=== PATIENT | female | born 1975 | race Two or more races ===

== ENCOUNTER 2024-09-06 14:14 | Emergency (ER) | payer MEDICAID, OTHER ==
[~2024-09-06] VITALS: Ht 162.6 cm; Wt 81.3 kg
[2024-09-06 14:53] LABS: Urine Bacteria None Seen /hpf (None Seen)
[2024-09-06] MEDS: SODIUM CHLORIDE 0.9% 1,000 ML IV ONE (15:00)
[2024-09-06 15:11] LABS: Urine Blood Negative /uL (Negative); Urine Clarity Clear (Clear); Urine Color Light-Yellow (Yellow); Urine Mucus FEW (None Seen); Urine Protein, UAD TRACE (Negative); Urine Specific Gravity 1.017 (1.001-1.035); Urine Squamous Epithelial Cell FEW /hpf (<5); Urine Urobilinogen Normal (Negative); Urine WBC 9 /HPF (0-5); Urine pH 6.5 (5.0-9.0)
--- NOTE | 2024-09-06 15:20 | ED.PDOC ---
General HPI Comments 49 y.o female with PMHx of Medullary sponge kidney (MSK), irregular heart beat, UTI's, DM, kidney stones, presents to the ED for a chief complaint of right sided flank pain that started 2 days ago. Patient reports pain is constant, radiates to her right lower pelvic/abdomen region and has no modifying factors. Patient denies any nausea, vomiting, diarrhea, fever, chills, hematuria. Hx of multiple lithotripsies with admissions to the hospital due to MSK and kidney stone production but mentions last admission was years ago. Chief Complaint: Flank Pain Time Seen by MD: 14:37 Primary Care Provider: daylin Carnes notes: Nurses Notes, Medications, Allergies Allergies: Coded Allergies: Aspirin (Verified Allergy, Unknown, 09/06/24) Home Meds Active Scripts Acetaminophen (Tylenol Extra Strength) 500 Mg Tab, 1000 MG PO Q6HP PRN, #30 TAB prn pain or fever Prov:RE PARHAM MD 09/06/24 Cephalexin Monohydrate (Cephalexin) 500 Mg Cap, 1 CAP PO QID for 10 Days, #40 CAP Prov:RE PARHAM MD 09/06/24 Information Source: Patient Mode of Arrival: Ambulatory Severity: Moderate Timing: Days (2) Duration: Since onset Onset: Spontaneous Symptoms: None History of: UTI, Kidney stone associated signs and symptoms: Flank Pain Past Medical History PAST MEDICAL HISTORY: HTN, Kidney Stones, UTI'S Past Medical History (Other): Medullary sponge kidney (MSK), irregular HR Surgical History (Other): multiple lithotripsies SAMPLE SEWER History: No Pertinent SAMPLE SEWER History Family History Family History: Reviewed,noncontributory to illness, No family hx of Cancer, No family hx of DM, No family hx of Heart alyssa, No family hx of HTN, No family hx ofKidney alyssa, No family hx of Liver alyssa, No family hx of Lung alyssa, No family hx of Stroke Social History Smoker: Non-Smoker Alcohol: Denies ETOH Use Drugs: Denies Drug Use Lives In: Home Constitutional: denies: chills, diaphoresis, fatigue, fever, malaise, sweats, weakness, others EENTM: denies: blurred vision, double vision, ear bleeding, ear discharge, ear drainage, ear pain, ear ringing, eye pain, eye redness, hearing loss, mouth pain, mouth swelling, nasal discharge, nose bleeding, nose congestion, nose pain, photophobia, tearing, throat pain, throat swelling, voice changes, others Respiratory: denies: cough, hemoptysis, orthopnea, SOB at rest, shortness of breath, SOB with excertion, stridor, wheezing, others Cardiovascular: denies: chest pain, dizzy spells, diaphoresis, Dyspnea on exertion, edema, irregular heart beat, left arm pain, lightheadedness, palpitations, PND, syncope, others Gastrointestinal: denies: abdomen distended, abdominal pain, blood streaked bowels, constipated, diarrhea, dysphagia, difficulty swallowing, hematemesis, melena, nausea, poor appetite, poor fluid intake, rectal bleeding, rectal pain, vomiting, others Genitourinary: reports: flank pain (right ); denies: abnormal vagina bleeding, burning, dyspareunia, dysuria, frequency, hematuria, incontinence, pain, , vagina discharge, urgency, others Neurological: denies: dizziness, fainting, headache, left sided numbness, left sided weakness, numbness, paresthesia, pre-existing deficit, right sided numbness, right sided weakness, seizure, speech problems, tingling, tremors, weakness, others Musculoskeletal: denies: back pain, gout, joint pain, joint swelling, muscle pain, muscle stiffness, neck pain, others Integumetry: denies: bruises, change in color, change in hair/nails, dryness, laceration, lesions, lumps, rash, wounds, others Allergic/Immunocompromised: denies: Difficulty Healing, Frequent Infections, Hives, Itching, others Hematologic/Lymphatic: denies: anemia, blood clots, easy bleeding, easy bruising, swollen glands, others Endocrine: denies: excessive hunger, excessive sweating, excessive thirst, excessive urination, flushing, intolerance to cold, intolerance to heat, unexplained weight gain, unexplained weight loss, others Psychiatric: denies: anxiety, bipolar disorder, depression, hopeless, panic disorder, schizophrenia, sleepless, suicidal, others All Other Systems: Reviewed and Negative Physical Exam General Appearance: No Apparent Distress, Obese HEENT: Other (Moist mucous membranes) Neck: Full Range of Motion, Normal Inspection Respiratory: Lungs Clear, No Accessory Muscle Use, No Respiratory Distress, Normal Breath Sounds Cardiovascular: No Edema, No JVD, Regular Rate/Rhythm Breast Exam: Deferred Gastrointestinal: Soft, Tenderness (Mild right lower flank tenderness to palpation. No abdominal tenderness to palpation. No rebound or guarding.) Genitalia: Deferred Pelvic: Deferred Rectal: Deferred Extremities: Normal inspection, Normal range of motion, Non-tender, No pedal edema Neurologic: Alert (Oriented x4), Normal Affect, Normal Mood, Other (Ambulatory without difficulty. No gross focal deficit.) Cerebellar Function: NOT DONE Reflexes: NOT DONE Skin: Dry, Normal Color, Warm Lymphatic: NOT DONE Was a procedure done? Was a procedure done?: No Differential Diagnosis Kidney stone (Female): Musculoskeletal pain, Pyelonephritis, Renal failure, Strain, Urolithiasis Kidney stone (Male): N/A Penile/Scrotal: N/A Urinary Problem (Male): N/A Urinary Problem (Female): Appendicitis, Ectopic , Intrauterine , PID, Pyelonephritis, Urolithiasis, UTI X-Ray, Labs, Meds, VS Vital Signs Date Time Temp Pulse Resp B/P (MAP) Pulse Ox O2 Delivery O2 Flow Rate FiO2 09/06/24 19:32 95 18 98 Room Air* 0 21 09/06/24 18:06 70 18 98 Room Air 09/06/24 18:06 97.1 70 18 95/46 (62) 98 97.1 09/06/24 14:32 98.5 104 17 162/90 (114) 95 Lab Test 09/06/24 15:17 09/06/24 14:52 Range/Units White Blood Count 13.3 H 4.4-10.8 10^3/uL Red Blood Count 5.46 H 4.0-5.20 10^6/uL Hemoglobin 16.2 12.2-16.2 g/dL Hematocrit 49.0 H 36.0-46.0 % Mean Corpuscular Volume 89.7 80.0-100.0 fL Mean Corpuscular Hemoglobin 29.6 28.0-32.0 pg Mean Corpuscular Hemoglobin Concent 33.0 32.0-36.0 g/dL Red Cell Distribution Width 14.5 H 11.8-14.3 % Platelet Count 272 140-450 10^3/uL Mean Platelet Volume 8.6 6.9-10.8 fL Neutrophils (%) (Auto) 71.5 37.0-80.0 % Lymphocytes (%) (Auto) 20.4 10.0-50.0 % Monocytes (%) (Auto) 5.9 0.0-12.0 % Eosinophils (%) (Auto) 1.8 0.0-7.0 % Basophils (%) (Auto) 0.4 0.0-2.0 % Neutrophils # (Auto) 9.5 H 1.6-8.6 10 ^3/uL Lymphocytes # (Auto) 2.7 0.4-5.4 10 ^3/uL Monocytes # (Auto) 0.8 0-1.3 10 ^3/uL Eosinophils # (Auto) 0.2 0-0.8 10 ^3/uL Basophils # (Auto) 0.1 0-0.2 10 ^3/uL Nucleated Red Blood Cells 0.1 % Sodium Level 142 136-145 mmol/L Potassium Level 3.8 3.5-5.1 mmol/L Chloride Level 103 98-107 mmol/L Carbon Dioxide Level 29 20-31 mmol/L Anion Gap 10 5-15 Blood Urea Nitrogen 16 9-23 mg/dL Creatinine 1.18 H 0.550-1.02 mg/dL Glomerular Filtration Rate Calc 56 >90 mL/min BUN/Creatinine Ratio 13.6 10.0-20.0 Serum Glucose 181 H 74-106 mg/dL Lactic Acid Level 1.9 0.4-2.0 mmol/L Calcium Level 10.4 8.7-10.4 mg/dL Beta HCG, Quantitative 1.4 L 1.5-4.2 mIU/mL Urine Color Light-yellow Yellow Urine Clarity Clear Clear Urine pH 6.5 5.0-9.0 Urine Specific Butler 1.017 1.001-1.035 Urine Protein Trace H Negative Urine Ketones Negative Negative Urine Blood Negative Negative /uL Urine Nitrite Negative Negative Urine Bilirubin Negative Negative Urine Urobilinogen Normal Negative mg/dL Urine Leukocyte Esterase Trace Negative /uL Urine RBC 1 0 - 4 /hpf Urine Microscopic WBC 9 H 0-5 /HPF Urine Squamous Epithelial Cells Few <5 /hpf Urine Bacteria None seen None Seen /hpf Urine Mucus Few None Seen Urine Glucose Normal Normal mg/dL Current Medications Medications (Trade) Dose Ordered Sig/Gustavo Route Start Time Stop Time Status Last Admin Sodium Chloride 1,000 ml @ 1,000 mls/hr Q1H ONCE IV 09/06/24 15:00 09/06/24 15:59 DC 09/06/24 15:00 Ketorolac Tromethamine (Toradol Injection) 30 mg ONCE ONCE IV 09/06/24 15:00 09/06/24 15:01 DC 09/06/24 18:21 Ondansetron HCl (Zofran) 4 mg ONCE ONCE IV 09/06/24 15:00 09/06/24 15:01 DC 09/06/24 18:22 Ceftriaxone Sodium 50 ml @ 100 mls/hr ONCE ONCE IV 09/06/24 15:00 09/06/24 15:29 DC 09/06/24 18:14 [place] [id number] Ph: [phone] DIAGNOSTIC IMAGING Diagnostic Imaging Report : [id number] Signed PATIENT: ALSIA PAREKHACCT: [id number] UNIT: [id number] : 1975 LOC: ER ROOM / BED: / AGE / SEX: 49 / F ADM STATUS: REG ER SERVICE [id number] ORDERING PHYSICIAN: RE PARHAM MD PROCEDURE(s): ABPL - CT AB PEL WO CON-NO ORAL OR IV REASON: RLQ pain ORDER NUMBER(s): [id number], ACCESSION NUMBER(s): [id number] Procedure: CT CT AB PEL WO CON-NO ORAL OR IV 09/06/2024 02:53 PM Indication: RLQ pain Comparison Study: None Technique: Axial images were obtained and reformatted in coronal and sagittal planes. All CT scans at this medical facility are performed using dose modulation techniques as appropriate to a performed exam including the following: Automated exposure control was utilized; adjustment of the MA and/or KV according to patient size; and use of iterative reconstruction technique. CT Dose: CTDI volume is 21.83 mGy. Dose-length product is 1340.03 mGy*cm FINDINGS: Lower Chest: Unremarkable. Hepatobiliary: Cholelithiasis without evidence of cholecystitis. Hepatic steatosis. Spleen: Unremarkable. Pancreas: Unremarkable. Adrenal Glands: A 1.7 cm right adrenal cyst. tract: Moderately atrophic left kidney. Medullary nephrocalcinosis bilaterally. Several right renal cysts measuring up to 4.8 cm. The urinary bladder is unremarkable. GI tract: The stomach is grossly normal in appearance. No evidence of small bowel obstruction. There is sigmoid diverticulosis without diverticulitis. The appendix is normal. Lymphatics: No mesenteric, retroperitoneal or periportal lymphadenopathy. Vasculature: The abdominal aorta is normal in in caliber. Pelvic Organs: Unremarkable Bones/soft tissues: No acute abnormality. Other: None. IMPRESSION: 1. No CT evidence for acute intra-abdominal or intrapelvic process. 2. Bilateral medullary nephrocalcinosis and moderately atrophic left kidney. No hydronephrosis or obstructing calculi. 3. Multiple left renal cysts measuring up to 4.8 cm. ATED BY: MOLLY DON MD DICTATED DATE/TIME: 09/06/24 160 SIGNED BY: MOLLY DON MD SIGNED DATE/TIME: 09/06/24 160 CC: X-Ray, Labs, Meds, VS Comment 49 y.o female with PMHx of Medullary sponge kidney (MSK), irregular heart beat, UTI's, DM, kidney stones complaining of right lower flank pain Vitals remarkable for heart rate 104, BP 162/90 Exam remarkable for right lower flank tenderness to palpation. No tenderness to percussion. No abdominal tenderness. No rebound or guarding. CT abdomen and pelvis: IMPRESSION: 1. No CT evidence for acute intra-abdominal or intrapelvic process. 2. Bilateral medullary nephrocalcinosis and moderately atrophic left kidney. No hydronephrosis or obstructing calculi. 3. Multiple left renal cysts measuring up to 4.8 cm. CBC remarkable for WBC 13.3, metabolic panel remarkable for creatinine 1.18 UA positive for protein, leukocyte esterase, RBCs, WBCs, few epithelial cells and mucus, consistent with possible UTI Patient treated with the following in the ED: 2 L 0.9 normal saline IV bolus, Toradol 30 mg IV, Zofran 4 mg IV, Rocephin 2 g IV On re-evaluation, patient states pain has improved. Vitals were stable, repeat abdominal exam is benign. Hospitalization was considered, however patient had rapid improvement of symptoms with treatment in the ED, and I no longer feel hospitalization is necessary. Patient now appears stable for discharge with close outpatient follow-up with her primary physician. Rx Keflex, Tylenol Time of 1ST Reevaluation: 15:11 Reevaluation 1ST: Unchanged Time of 2ND Reevaluation: 17:43 Reevaluation 2ND: Improved Patient Education/Counseling: Diagnosis, Treatment, Prognosis Family Education/Counseling: No Family Present Departure 1 Departure Time of Disposition: 17:43 Impression: Primary Impression: UTI (urinary tract infection) Qualified Codes: N39.0 - Urinary tract infection, site not specified Disposition: 01 HOME / SELF CARE / HOMELESS Condition: Stable Additional Instructions: Your urine test showed you have a mild urine infection. Your CT scan did not show any kidney stone. Please see the report below. I have prescribed antibiotics and pain medication. Follow-up with your primary doctor in 1-2 days. Return to ER for persistent or worsening symptoms. [place] [id number] Ph: [phone] DIAGNOSTIC IMAGING Diagnostic Imaging Report : [id number] Signed PATIENT: ALISA PAREKH ACCT: [id number] UNIT: [id number] : 1975 LOC: ER ROOM / BED: / AGE / SEX: 49 / F ADM STATUS: REG ER SERVICE 1449 ORDERING PHYSICIAN: RE PARHAM MD PROCEDURE(s): ABPL - CT AB PEL WO CON-NO ORAL OR IV REASON: RLQ pain ORDER NUMBER(s): [id number], ACCESSION NUMBER(s): [id number] Procedure: CT CT AB PEL WO CON-NO ORAL OR IV 09/06/2024 02:53 PM Indication: RLQ pain Comparison Study: None Technique: Axial images were obtained and reformatted in coronal and sagittal planes. All CT scans at this medical facility are performed using dose modulation techniques as appropriate to a performed exam including the following: Automated exposure control was utilized; adjustment of the MA and/or KV according to patient size; and use of iterative reconstruction technique. CT Dose: CTDI volume is 21.83 mGy. Dose-length product is 1340.03 mGy*cm FINDINGS: Lower Chest: Unremarkable. Hepatobiliary: Cholelithiasis without evidence of cholecystitis. Hepatic steatosis. Spleen: Unremarkable. Pancreas: Unremarkable. Adrenal Glands: A 1.7 cm right adrenal cyst. tract: Moderately atrophic left kidney. Medullary nephrocalcinosis bilaterally. Several right renal cysts measuring up to 4.8 cm. The urinary bladder is unremarkable. GI tract: The stomach is grossly normal in appearance. No evidence of small bowel obstruction. There is sigmoid diverticulosis without diverticulitis. The appendix is normal. Lymphatics: No mesenteric, retroperitoneal or periportal lymphadenopathy. Vasculature: The abdominal aorta is normal in in caliber. Pelvic Organs: Unremarkable Bones/soft tissues: No acute abnormality. Other: None. IMPRESSION: 1. No CT evidence for acute intra-abdominal or intrapelvic process. 2. Bilateral medullary nephrocalcinosis and moderately atrophic left kidney. No hydronephrosis or obstructing calculi. 3. Multiple left renal cysts measuring up to 4.8 cm. e-Prescriptions Acetaminophen (Tylenol Extra Strength) 500 Mg Tab 1000 MG PO Q6HP PRN, #30 TAB prn pain or fever Prov: RE PARHAM MD 09/06/24 Cephalexin Monohydrate (Cephalexin) 500 Mg Cap 1 CAP PO QID for 10 Days, #40 CAP Prov: RE PARHAM MD 09/06/24 Discharged With: Relative Critical Care Note Critical Care Time?: No Stability Stability form required: No I personally scribed for RE PARHAM MD ([email or web address]) on 09/06/24 at 15:20. Electronically submitted by Renee Bowman ([facility]). I personally scribed for RE PARHAM MD ([email or web address]) on 09/06/24 at 16:46. Electronically submitted by Renee Bowman ([facility]). RE PARHAM MD Sep 06, 2024 15:20
[2024-09-06 15:43] LABS: Basophils # (auto) 0.1 10 ^3/uL (0-0.2); Basophils % (auto) 0.4 % (0.0-2.0); Eosinophils # (auto) 0.2 10 ^3/uL (0-0.8); Eosinophils % (auto) 1.8 % (0.0-7.0); Hemoglobin 16.2 g/dL (12.2-16.2); Lymphocytes # (auto) 2.7 10 ^3/uL (0.4-5.4); Lymphocytes % (auto) 20.4 % (10.0-50.0); Mean Corpuscular Hemoglobin 29.6 pg (28.0-32.0); Mean Corpuscular Volume 89.7 fL (80.0-100.0); Monocytes # (auto) 0.8 10 ^3/uL (0-1.3); Monocytes % (auto) 5.9 % (0.0-12.0); Neutrophils # (auto) 9.5 10 ^3/uL (1.6-8.6); Neutrophils % (auto) 71.5 % (37.0-80.0); Nucleated Red Blood Cells % 0.1 %; Platelet Count (auto) 272 10^3/uL (140-450); Red Blood Cells 5.46 10^6/uL (4.0-5.20); Red Cell Distribution Width 14.5 % (11.8-14.3); White Blood Cell 13.3 10^3/uL (4.4-10.8)
[2024-09-06 15:54] LABS: Chloride 103 mmol/L (98-107); Potassium 3.8 mmol/L (3.5-5.1); Sodium 142 mmol/L (136-145)
[2024-09-06 15:55] LABS: Anion Gap 10 (5-15); Carbon Dioxide 29 mmol/L (20-31)
[2024-09-06 16:00] LABS: BUN/Creatinine Ratio 13.6 (10.0-20.0); Blood Urea Nitrogen 16 mg/dL (9-23)
[2024-09-06 16:01] LABS: Calcium 10.4 mg/dL (8.7-10.4); Glucose 181 mg/dL (74-106)
--- NOTE | 2024-09-06 16:05 | DVH ---
Procedure: CT CT AB PEL WO CON-NO ORAL OR IV 09/06/2024 02:53 PM Indication: RLQ pain Comparison Study: None Technique: Axial images were obtained and reformatted in coronal and sagittal planes. All CT scans at this medical facility are performed using dose modulation techniques as appropriate t o a performed exam including the following: Automated exposure control was utilized; adjustment of th e MA and/or KV according to patient size; and use of iterative reconstruction technique. CT Dose: CTDI volume is 21.83 mGy. Dose-length product is 1340.03 mGy*cm FINDINGS: Lower Chest: Unremarkable. Hepatobiliary: Cholelithiasis without evidence of cholecystitis. Hepatic steatosis. Spleen: Unremarkable. Pancreas: Unremarkable. Adrenal Glands: A 1.7 cm right adrenal cyst. tract: Moderately atrophic left kidney. Medullary nephrocalcinosis bilaterally. Several right leslie al cysts measuring up to 4.8 cm. The urinary bladder is unremarkable. GI tract: The stomach is grossly normal in appearance. No evidence of small bowel obstruction. There is sigmoid diverticulosis without diverticulitis. The appendix is normal. Lymphatics: No mesenteric, retroperitoneal or periportal lymphadenopathy. Vasculature: The abdominal aorta is normal in in caliber. Pelvic Organs: Unremarkable Bones/soft tissues: No acute abnormality. Other: None. IMPRESSION: 1. No CT evidence for acute intra-abdominal or intrapelvic process. 2. Bilateral medullary nephrocalcinosis and moderately atrophic left kidney. No hydronephrosis or obs tructing calculi. 3. Multiple left renal cysts measuring up to 4.8 cm.
[2024-09-06] MEDS ORDERED: CEPH500C PO (17:46)
[2024-09-06] MEDS ORDERED: ACET-1304 PO (17:46)
[2024-09-06 18:06] VITALS: BP 95/46; TEMP 97.1
[2024-09-06] MEDS: cefTRIAXone 1GM/50ML D5W 50 ML IV ONE (18:14)
[2024-09-06] MEDS: KETOROLAC TROMETH 30 MG/ML 1ML VIAL IV ONE (18:21)
[2024-09-06] MEDS: ONDANSETRON HCL 4 MG/2 ML VIAL IV ONE (18:22)
[2024-09-06 19:32] VITALS: PULSE 95; RESP 18; O2SAT 98
== END 2024-09-06 19:36 | disposition home or self-care (01) ==
LOC: ER 14:14
DX: N39.0 Urinary tract infection, site not specified (principal); R10.2 Pelvic and perineal pain; E83.59 Other disorders of calcium metabolism; I10 Essential (primary) hypertension; E11.9 Type 2 diabetes mellitus without complications; Z87.442 Personal history of urinary calculi; Z88.6 Allergy status to analgesic agent
CPT/HCPCS: 36415; 74176; 80048; 81001; 83605; 84702; 85025; 87040; 96361; 96365; 96375; 99285; J0696; J1885; J2405; J7030